=== PATIENT | female | born 1970 | race Caucasian/White ===

== ENCOUNTER 2016-11-02 22:38 | Inpatient (IN) | payer BC ==
--- NOTE | ~2016-11-02 | HP ---
History And Physical [place] [id number] [facility] [place]. [address] NAME: KATERINA DICKSON : 68 STATUS : ADM IN [facility]#: [id number] AGE: 46 ADM/REG DATE : 11/03/16 MR#: [id number] REPORT SERV DATE: 11/03/16 DICTATED BY: FABIENNE FRANZ DATE: 11/03/16 REPORT STATUS : Draft TRANSCRIBED BY: JAMMIE DATE: 11/03/16 DATE OF ADMISSION: 11/03/2016 CHIEF COMPLAINT: Unable to speak. HISTORY OF PRESENT ILLNESS: The patient is a 46-year-old white female with a past medical history of hypertension and transient ischemic attack, who presents to the emergency room tonight with complaints of aphasia. Please see Neurology's consult note for manager multimedia course of the patient's presentation with the administration of tPA. In brief summary, the patient was last seen normal at approximately 0630 on the night prior to admission when she developed the acute onset of difficulty speaking which was associated with left facial numbness as well as numbness in her left arm and leg associated with left facial droop as well as left-sided hemiparesis and difficulty speaking. The patient was brought to the emergency room by family where she continued to have these symptoms. In the emergency room, she was found to be hypertensive with systolic blood pressure in the 180s. There are no contraindications to tPA, and after discussion with Neurology, decision was made to administer tPA to the patient. She was also given hydralazine for hypertension, and following evaluation by Neurology, she is being admitted to the ICU overnight for observation given that she was given tPA. PAST MEDICAL HISTORY: 1. Hypertension. 2. History of TIA. HOME MEDICATIONS: See medication reconciliation form. ALLERGIES: NO KNOWN DRUG ALLERGIES. FAMILY HISTORY: Positive for CVA in her mother. SOCIAL HISTORY: Occasional alcohol use. No IV drug abuse. She does smoke marijuana and has no history of smoking. REVIEW OF SYSTEMS: A 10-point review of systems negative except as mentioned in the HPI. PHYSICAL EXAMINATION: VITAL SIGNS: Temperature 97.8, heart rate 62, respiratory rate 15, and blood pressure 160/97. GENERAL: A white female in no acute distress. HEENT: Pupils equal, round, and reactive to light. Extraocular movements intact. Oropharynx clear. Moist mucous membranes. NECK: Supple. Nontender. No lymphadenopathy. No thyromegaly. No jugular venous distention. LUNGS: Clear to auscultation bilaterally. CARDIOVASCULAR: Regular rate and rhythm. No murmurs, rubs, or gallops. History And Physical [address] [place]. [address] NAME: KATERINA DICKSON : 68 STATUS : ADM IN PAT#: [id number] AGE: 46 ADM/REG DATE : 11/03/16 MR#: [id number] REPORT SERV DATE: 11/03/16 DICTATED BY: FABIENNE FRANZ DATE: 11/03/16 REPORT STATUS : Draft TRANSCRIBED BY: JAMMIE DATE: 11/03/16 ABDOMEN: Soft, nontender, nondistended. Positive bowel sounds. No hepatosplenomegaly. EXTREMITIES: No cyanosis, clubbing, or edema. NEURO: Alert and oriented. Positive dysarthria. Left-sided hemiparesis with paresthesias. Left-sided facial droop present. PSYCH: Seems appropriate for what I can assess. LABS AND IMAGING: CBC within normal limits. Metabolic profile within normal limits. Head CT within normal limits. CT angio with no significant findings. ASSESSMENT AND PLAN: The patient is a 46-year-old female with a past medical history of hypertension, transient ischemic attack, who presented to the emergency room after developing acute onset of left-sided hemiparesis, paresthesia, and dysphagia, concern for a potential acute cerebrovascular accident versus hypertensive emergency or psychogenic component. I will defer to Neurology for further workup and treatment of potential cerebrovascular accident. The patient is status post tPA, so we will observe in the ICU overnight for bleeding. The patient will be getting MRI tomorrow as well as an echocardiogram. I appreciate Neurology's assistance in management of this patient. We will place the patient on aspirin 24 hours following tPA. We will treat her with p.r.n. labetalol and Cardene drip if needed for significant hypertension. The patient will be on SCDs for DVT prophylaxis and Protonix for gastrointestinal prophylaxis. The patient will remain in the ICU overnight. The patient is full code. YENNY/JAMMIE Fabienne Franz MD / [id number] CC: MD Jeaneth Khan M.D.
--- NOTE | ~2016-11-02 | DS ---
Discharge Summary [place] [address] [place]. [address] NAME: KATERINA DICKSON : 68 STATUS : DIS IN PAT#: [id number] AGE: 46 ADM/REG DATE : 11/03/16 MR#: [id number] REPORT SERV DATE: 11/07/16 DICTATED BY: IGNACIO DICKSON DATE: 11/07/16 REPORT STATUS : Draft TRANSCRIBED BY: MODL DATE: 11/07/16 ADMISSION DATE: 11/03/2016 DISCHARGE DATE: 11/07/2016 ADDENDUM: The patient has been normotensive here. Could consider outpatient beta-brando as best mortality reduction and antihypertensive for CAD equivalent. TIA. Needs to reduce Adderall given history of TIA. Also, the patient should consider possible outpatient MS workup. All questions were answered. It took well over 30 minutes to do. MIRELLA/JAMMIE Ignacio Dickson DO / [id number] CC: DO Jeaneth Goldman M.D.
--- NOTE | ~2016-11-02 | CN ---
Consultation Report [facility] [address] [place]. [address] NAME: KATERINA DICKSON : 68 STATUS : ADM IN PAT#: [id number] AGE: 46 ADM/REG DATE : 11/03/16 MR#: [id number] REPORT SERV DATE: 11/06/16 DICTATED BY: ANTONIO INMAN DATE: 11/06/16 REPORT STATUS : Draft TRANSCRIBED BY: MODL DATE: 11/06/16 PSYCHIATRIC CONSULTATION DATE OF CONSULTATION: 11/06/2016 I reviewed this patient's medical record. I discussed her status with her nurse. I discussed her status with Dr. Dickson, who is her current hospitalist. HISTORY OF PRESENT ILLNESS: She was admitted with left-sided weakness and inability to speak. She has been evaluated by Neurology with a diagnosis of complex migraine versus psychogenic etiology. I was consulted to address anxiety. PAST PSYCHIATRIC HISTORY: Her home medication list included Xanax 1 mg daily, Adderall 15 mg at mid day and 30 mg in the morning, hydrocodone/APAP 10/325 q.6 hours p.r.n. She told me she seldom takes the Xanax and the hydrocodone. She was started on Adderall about one year ago and she said she finds it helpful because she is able to function better at work. Topamax 25 mg at bedtime was started yesterday. She told me she has taken Topamax in the past to control migraine with good effect. She stopped taking it because her migraines were no longer troublesome. She reports that she experiences an occasional anxiety attack. When she was a child, she was prescribed Ritalin for a short period of time. She said she stopped taking it because her father thought she had slowed down too much. She reports that she always had difficulty in school. She received poor grades and she eventually quit school in the 10th grade. She also reports a lifelong tendency toward easily provoked crying and affective lability. She has experienced depressive episodes and also she has had episodes of heightened motivation with heightened impulsivity and energy. During the latter episodes, she has had periods of excessive spending. SOCIAL HISTORY: She is currently working for [employer], taking care of developmentally disabled adults. She has been once. She was about two years ago. She has two children, and two or more grandchildren. FAMILY HISTORY: Her sister and her niece were diagnosed with bipolar disorder. Her mother has suffered from depression and mood swings. MENTAL STATUS: She was cooperative and pleasant in attitude. However, she volunteered very little information, but she answered all questions appropriately. Her mood was mildly anxious. Her affect was labile, with brief episodes of tearfulness. Her thinking was logical. She had no delusions. She had no hallucinations. She was oriented to time, place, and person. She demonstrated good recent and remote memory. DIAGNOSIS: Probable bipolar 2 disorder. RECOMMENDATIONS: She should seek followup, outpatient, psychiatric care in the [facility] area. She thought she might apply to [facility] for this care. I will not start her on any new psychotropic medication. Consultation Report [address] [place]. [address] NAME: DICKSONMARIAHKATERINA MAGY : 68 STATUS : ADM IN [facility]#: [id number] AGE: 46 ADM/REG DATE : 11/03/16 MR#: [id number] REPORT SERV DATE: 11/06/16 DICTATED BY: ANTONIO INMAN DATE: 11/06/16 REPORT STATUS : Draft TRANSCRIBED BY: JAMMIE DATE: 11/06/16 MARGRET/JAMMIE Antonio Inman M.D. / [id number] CC: DO Jeaneth Goldman M.D.
--- NOTE | ~2016-11-02 | CN ---
Consultation Report [facility] [address] [place]. [address] NAME: KATERINA DICKSON : 68 STATUS : ADM IN PAT#: [id number] AGE: 46 ADM/REG DATE : 11/03/16 MR#: [id number] REPORT SERV DATE: 11/03/16 DICTATED BY: INNA GOMEZ DATE: 11/02/16 REPORT STATUS : Draft TRANSCRIBED BY: MODJohnny DATE: 11/02/16 [facility] INPATIENT NEUROLOGY CONSULTATION DATE OF CONSULTATION: 11/02/2016 HISTORY OF PRESENT ILLNESS: This patient was called as a stroke alert in the [facility] ER. I was called by the hospital at 213. I was told the last known normal time was at approximately 1900 hours. At that point, the patient developed left facial numbness followed by numbness in the left arm and left leg with left face droop, left arm and left leg weakness, and inability to speak. I spoke to Dr. Coates on the phone at this time, the patient was going to the CAT scanner, I was driving to the hospital, and by 2204, I had not received the CAT scan results, so I called the hospital again and spoke to Dr. Coates. She informed me that the CT head without contrast showed no hemorrhage and no signs of early subacute ischemia. Additionally, the patient's INR and platelets had come back. By this point, the patient was still quite symptomatic according to Dr. Coates, although she was making some mumbling speech. I was told there were no contraindications to TPA administration; therefore, we made the decision to infuse this at 2214. I was at the bedside by 2219. When I arrived, there ensued some indecision from the family about when the patient was last known to be normal. I heard times that were as remote as 1700 hours, which would put her outside the TPA window. Finally, I was able to speak to the family member who was literally with her at the last known normal time and he pegged it down to 1830. This did delay the infusion of TPA; however, I had this information at hand by 2229 and we were ready to proceed at that time. Additionally, when the patient came to the ER, her systolic blood pressure was 187 and she admitted that she had not been taking her blood pressure medications for several days. She had been administered hydralazine 10 mg at the time of my arrival and the blood pressure had come down to 161/100. She has a history of frequent migraines; however, she denied any migraine occurring today. She also denied any panic, anxiety, or other psychiatric symptoms associated with her current event. In fact, today is Mother's Day and she was in quite a good mood with her family around to spend time with her. Of note, her past medical history is significant reportedly for TIA diagnosed and treated at [facility] in 2016. PAST MEDICAL HISTORY: TIA and hypertension. MEDICATIONS: Adderall is the only medication she takes regularly. She takes hydrocodone occasionally. As noted, she has not been taking her blood pressure medication. She does not regularly take aspirin or any other anti-platelet or anticoagulation medications. ALLERGIES: NO KNOWN DRUG ALLERGIES. FAMILY HISTORY: The family history is notable for stroke at an early age. Her mother was at about the same age when she had a stroke. The patient and family are unaware of any provoking conditions such as a hypercoagulable disorder. Consultation Report [address] [place]. [address] NAME: KATERINA DICKSON : 68 STATUS : ADM IN [facility]#: [id number] AGE: 46 ADM/REG DATE : 11/03/16 MR#: [id number] REPORT SERV DATE: 11/03/16 DICTATED BY: INNA GOMEZ DATE: 11/02/16 REPORT STATUS : Draft TRANSCRIBED BY: JAMMIE DATE: 11/02/16 SOCIAL HISTORY: The patient endorses occasional alcoholic beverages, but denies cigarette smoking. She is exposed to secondhand smoke. She also smokes marijuana occasionally and states she has not done so in the last two weeks. REVIEW OF SYSTEMS: A complete review of systems was obtained and is negative other than stated in the history of present illness. PHYSICAL EXAMINATION: VITAL SIGNS: Blood pressure 161/100. GENERAL: Mild acute distress. HEAD, EARS, EYES, NOSE, AND THROAT: Normocephalic atraumatic. Moist mucous membranes. CARDIOVASCULAR: Regular rate and rhythm. No murmurs, gallops, or rubs. PULMONARY: Clear to auscultation bilaterally. ABDOMEN: Soft, nontender, nondistended. Active bowel sounds. SKIN: No rashes or lesions. JOINTS: No effusions or deformities. NEUROLOGIC EXAMINATION: The patient was oriented to self, hospital, and the fact that it was Mother's Day. Her speech was hypophonic and dysarthric. She did have a bit of stuttering over syllables when she read from the stroke cards; however, she could actually read all the words and she could identify all of the objects on the other stroke cards. She was aware of current events. She followed commands reasonably well. Cranial nerves showed pupils equally round and reactive to light and accommodation. Visual us were full to confrontation bilaterally. Funduscopic examination showed no disc margin abnormalities. Extraocular movements were intact. Facial sensation was reportedly reduced diffusely in the left side of the face; however, she did split the midline with the tuning fork placed over the frontal boss and toggled side to side. This is generally held to be a nonphysiologic finding. The upper facial strength was normal and symmetric. She appeared to have slight left nasolabial fold flattening and she did not activate the left lower part of the face when asked to smile or grimace. I initially thought this might be functional; however, I tested it repeatedly and the results remained the same. Auditory acuity was grossly intact bilaterally. The palate elevated symmetrically. Head turn and shoulder shrug were normal and symmetric. The tongue thrusts in the midline. On motor testing, she had some give-way proximally in the left arm; however, there may have been some mild diffuse weakness, perhaps 4+/5. This was variable and the effort was somewhat ratchety. There did not appear to be any true pronator drift on testing, although she held the left arm in a somewhat pronated position compared to her posture with the right arm. Effort was also ratchety in the left leg; however, she exhibited a greater degree of weakness there. Left hip flexor was 2/5. Knee extension and flexion 4/5. Dorsiflexion and plantar flexion 4+/5. On asking her to raise the left leg from the bed, I questioned whether a Bhat's response was positive with my hand placed under the right heel. On sensory testing, she endorsed reduction to light touch in the left arm and left leg. There was some degree of sensory extinction on simultaneous testing with the patient's eyes closed. Reflexes were 2+ in the arms and legs with negative Babinski. Coordination testing showed no clear dysmetria on finger-nose- Consultation Report [place] [id number] [place]. [address] NAME: KATERINA DICKSON : 68 STATUS : ADM IN PAT#: [id number] AGE: 46 ADM/REG DATE : 11/03/16 MR#: [id number] REPORT SERV DATE: 11/03/16 DICTATED BY: INNA GOMEZ DATE: 11/02/16 REPORT STATUS : Draft TRANSCRIBED BY: JAMMIE DATE: 11/02/16 finger. Gait testing was deferred. LABS AND IMAGING: CT of the head without contrast dated 11/02/2016 showed no acute intracranial abnormalities. There was no hemorrhage and no obvious signs of early subacute ischemia. I have personally visualized and interpreted this film. The radiology report called by telephone stated the same. CT of the head and neck dated 11/02/2016, was also obtained in the ER. I see no critical stenoses or occlusions in the proximal large vessel anterior circulation. I have personally visualized and interpreted this film. Salient labs include a platelet count of 291 and an INR of 1. ASSESSMENT: This patient's symptoms are worrisome for stroke to some extent. I would point out that in a right-handed patient, it would be incredibly unusual for a stroke to present with language dysfunction, but left-sided motor and sensory symptoms. This is a mismatch. In the overwhelming majority of right-handed patients, the language function is rooted in the left hemisphere. I suppose the patient could have multifocal acute events stemming from a proximal source. Hypertensive emergency is also in the differential as is psychogenesis; however, given her reported history of a TIA last year and her lack of home anti-platelet medication, I think the most prudent thing to do is to proceed as if this were an actual stroke. TPA was infused 7.7 mg over the first 60 seconds and then 69 mg over the ensuing 59 minutes. There does not appear to be an indication for endovascular intervention. PLAN: 1. TPA as per above. 2. Admit to the ICU to telemetry. 3. MRI brain without contrast, transthoracic echocardiogram with bubble, carotid ultrasound; these are all tests that will commence tomorrow. 4. TSH, A1c, and fasting lipids. 5. PT, OT, and ST. 6. Blood pressure goal of systolic less than 185 and diastolic less than 110. Currently, this has been controlled with hydralazine. If you will look at the stroke order set, the p.r.n. medication of choice is labetalol and I made sure the nurse was aware of this before I left the ER. If labetalol is insufficient, the next step is a Cardene drip. 7. The patient needs to be started on aspirin 81 mg daily, but this should not commence until 24 hours after the TPA infusion has been completed. 8. Until it has been 24 hours since the TPA infusion was completed, this patient should not receive anti-platelet medications, anticoagulation medications, needle sticks, or Marroquin placements. 9. The neuro-hospitalist will round on this patient tomorrow. LINH/JAMMIE Inna Fountain Consultation Report [address] [address] NAME: KATERINA DICKSON : 68 STATUS : ADM IN PAT#: [id number] AGE: 46 ADM/REG DATE : 11/03/16 MR#: [id number] REPORT SERV DATE: 11/03/16 DICTATED BY: INNA GOMEZ DATE: 11/02/16 REPORT STATUS : Draft TRANSCRIBED BY: MODJohnny DATE: 11/02/16 MD Gentry / [id number] CC: MD Jeaneth Khan M.D.
--- NOTE | ~2016-11-02 | DS ---
Discharge Summary [facility] [address] [place]. [address] NAME: KATERINA DICKSON : 68 STATUS : DIS IN PAT#: [id number] AGE: 46 ADM/REG DATE : 11/03/16 MR#: [id number] REPORT SERV DATE: 11/07/16 DICTATED BY: IGNACIO DICKSON DATE: 11/07/16 REPORT STATUS : Draft TRANSCRIBED BY: MODL DATE: 11/07/16 ADMISSION DATE: 11/03/2016 DISCHARGE DATE: 11/07/2016 HOSPITAL COURSE: A 46-year-old female with known history of hypertension, concern for TIA history, ADHD on Adderall 30 mg a day. The patient came in on 11/03/2016 unable to speak. She was last seen normal at 0630 hours the night prior. She had developed acute- onset difficulty speaking, left facial numbness, numbness of left arm and left leg, left facial droop, left-sided hemiparesis, difficulty speaking, hypertension of 180 systolic. There were no contraindications to tPA. After discussion with Neurology, decision was made to administer tPA. She went to the ICU thereafter. The patient had an MRI eventually after CT. Had a morphologically normal MRI of the brain with the exception of a small amount of gliotic change in the right and left centrum semiovale, nonspecific. Small areas of gliosis do not appear acute, cause no mass effect, not complicated by hemorrhage. Etiology of these areas can be quite large covering vascular, traumatic, or prior exposure to head trauma history possible. The patient denied any overt head trauma. The patient had an echocardiogram for full workup. EF 55%. Mild diastolic dysfunction. Normal RV chamber size and function. Posterior mitral valve prolapse without significant regurgitation or stenosis. No PFO. The patient was thought to have persistent left-sided hemiparesis despite normal MRI, CT, and even given tPA. The patient appeared to have giveaway weakness in left upper extremity and left lower extremity. She appeared to have 5/5 power initially, then had 4/5. Left hemiparesis with complex migraine versus psychogenic event. Trial Topamax, for which the patient states her headache with some blurry vision has improved, seen by Psychiatry, probable bipolar type 2 disorder. Stays alone. Above diagnosis mainly based on her history of lability, rapid mood shifting, heightened motivation, impulsivity, energy, episodes of excessive spending. Pursue Psychiatric outpatient care. Dr. Clifford signed off. The patient is amenable for discharge to go to facility. DISCHARGE MEDICATIONS: Will include Adderall 30 mg p.o. daily, would recommend to wean that down as an outpatient, spoken to the patient about this; aspirin 81 p.o. daily; Lipitor 80 p.o. daily; folic acid 1 mg p.o. daily; multivitamin one tablet p.o. daily; Lortab 5/325 p.o. b.i.d. p.r.n. pain; Xanax 0.25 p.o. b.i.d.; consider possible SSRI as an outpatient. CONSULTS: Psychiatry, ICU, and Neurology. DISCHARGE DIAGNOSES: See above, including chronic pain syndrome, generalized anxiety disorder, attention deficit hyperactivity disorder, hypertension, history of transient ischemic attack, bipolar type 2, left-sided hemiparesis MRI be negative, complicated migraine likely. All questions were answered. Took well over 30 minutes to do. MIRELLA/JAMMIE Discharge Summary [address] [address] NAME: YESSIKATERINA MAGY : 68 STATUS : DIS IN PAT#: [id number] AGE: 46 ADM/REG DATE : 11/03/16 MR#: [id number] REPORT SERV DATE: 11/07/16 DICTATED BY: IGNACIO DICKSON DATE: 11/07/16 REPORT STATUS : Draft TRANSCRIBED BY: MODL DATE: 11/07/16 Ignacio Dickson DO / [id number] CC: DO Jeaneth Goldman M.D.
[2016-11-02 21:43] LABS: BASOPHILS 0.2 %; BASOPHILS ABSOLUTE 0.02 10/3/uL (0.0-0.16); EOSINOPHILS 1.8 %; EOSINOPHILS ABSOLUTE 0.16 10/3/uL (0.0-0.53); HEMATOCRIT 40.9 % (36.0-48.0); HEMOGLOBIN 13.4 g/dL (12.0-16.0); IMMATURE GRANULOCYTES 0.1 %; IMMATURE GRANULOCYTES ABSOLUTE 0.01 10/3/uL (0.0-0.11); LYMPHOCYTES ABSOLUTE 3.89 10/3/uL (0.67-4.30); MEAN CORPUS HGB CONC 32.8 g/dL (32.0-36.0); MEAN CORPUSCULAR HEMOGLOB 29.3 pg (26.0-34.0); MEAN CORPUSCULAR VOLUME 89.3 fL (80-100); MEAN PLATELET VOLUME 9.3 fL (9.2-13.0); MONOCYTES 6.8 %; NEUTROPHILS 47.1 %; NEUTROPHILS ABSOLUTE 4.16 10/3/uL (2.02-8.40); PLATELET COUNT 291 10/3/uL (150-400); RBC DISTRIBUTION WIDTH 13.6 % (12.0-16.0); RED CELL COUNT 4.58 10/6/uL (4.0-5.6); WHITE BLOOD CELLS 8.8 10/3/uL (4.5-10.5)
[2016-11-02 21:46] LABS: MANUAL DIFF NO %
[2016-11-02 21:54] LABS: PARTIAL THROMBO TIME 32.9 SEC (22.5-37.2); PROTIME (NOT ORD) 12.8 SEC (12.0-14.5)
[2016-11-02 22:01] LABS: A/G RATIO 0.9 (0.7-1.9); ALBUMIN 3.5 G/DL (3.5-5.0); ALKALINE PHOSPHATASE 69 U/L (45-117); BUN (BLOOD UREA NITROGEN) 12 MG/DL (6-23); CALCIUM, SERUM 8.5 MG/DL (8.5-10.4); CHLORIDE, SERUM 109 MMOL/L (96-112); CO2 (CARBON DIOXIDE) 31 MMOL/L (24-34); CREATININE 0.94 MG/DL (0.55-1.02); GFR AFRICAN AMERICAN 84 ML/MIN (>=60); GFR NON AFRICAN AMERICAN 72 ML/MIN (>=60); GLOBULIN 3.7 G/DL (2.5-4.1); GLUCOSE, SERUM 90 MG/DL (60-99); SGPT(ALT) 18 U/L (5-65); SODIUM, SERUM 144 MMOL/L (135-148); TOTAL BILIRUBIN 0.2 MG/DL (0-1.2); TOTAL PROTEIN 7.2 G/DL (6.0-8.5); TROPONIN I <0.02 NG/ML (<0.05)
[2016-11-02 22:02] LABS: POTASSIUM, SERUM 3.8 MMOL/L (3.5-5.3); SGOT(AST) 14 U/L (5-40)
[2016-11-03 01:47] LABS: CHOL/HDL RATIO(NOT ORDER) 2.2 (0-5); CHOLESTEROL 125 MG/DL (< 200); HDL CHOLESTEROL 57 MG/DL (> 49); LDL CHOLESTEROL 57 MG/DL (< 130); NON-HDL CHOLESTEROL 68 MG/DL (< 160); TRIGLYCERIDE 58 MG/DL (< 150)
[2016-11-03 05:24] LABS: CPK (IF ELEVATED MB BANDS) 40 U/L (0-200); TROPONIN I <0.02 NG/ML (<0.05)
[2016-11-03 09:50] LABS: ASCORBIC ACID (UR NOT ORDER) NEG (NEG); BILIRUBIN, URINE NEGATIVE (NEG); KETONE, URINE NEGATIVE (NEG); LEUKOCYTE ESTERASE(NOT OR NEG (NEG); WBC (NOT ORDERED) (RFLEX) 1 (0-5)
[2016-11-03 10:35] LABS: CK-MB 0.6 NG/ML; CPK 40 U/L (0-200)
[2016-11-03] MEDS ORDERED: ACET500CAP PO (11:03)
[2016-11-03] MEDS ORDERED: ADDERALL30 MG PO (11:05)
[2016-11-03] MEDS ORDERED: ADDERALL15 MG PO (11:05)
[2016-11-03] MEDS ORDERED: NORCO1 TAB PO (11:06)
[2016-11-03] MEDS ORDERED: XANAX1 MG PO (11:06)
[2016-11-03 14:10] LABS: CPK (IF ELEVATED MB BANDS) 55 U/L (0-200); TROPONIN I <0.02 NG/ML (<0.05)
[2016-11-03 22:55] LABS: CPK (IF ELEVATED MB BANDS) 36 U/L (0-200); TROPONIN I <0.02 NG/ML (<0.05)
[2016-11-04 05:13] LABS: BASOPHILS 0.3 %; BASOPHILS ABSOLUTE 0.02 10/3/uL (0.0-0.16); EOSINOPHILS 2.7 %; EOSINOPHILS ABSOLUTE 0.18 10/3/uL (0.0-0.53); HEMOGLOBIN 13.5 g/dL (12.0-16.0); LYMPHOCYTES 45.3 %; LYMPHOCYTES ABSOLUTE 3.05 10/3/uL (0.67-4.30); MEAN CORPUS HGB CONC 32.9 g/dL (32.0-36.0); MEAN CORPUSCULAR HEMOGLOB 29.6 pg (26.0-34.0); MEAN CORPUSCULAR VOLUME 89.9 fL (80-100); MEAN PLATELET VOLUME 9.1 fL (9.2-13.0); MONOCYTES 4.9 %; MONOCYTES ABSOLUTE 0.33 10/3/uL (0.21-1.20); NEUTROPHILS 46.8 %; NEUTROPHILS ABSOLUTE 3.15 10/3/uL (2.02-8.40); PLATELET COUNT 270 10/3/uL (150-400); RBC DISTRIBUTION WIDTH 13.5 % (12.0-16.0); RED CELL COUNT 4.56 10/6/uL (4.0-5.6); WHITE BLOOD CELLS 6.7 10/3/uL (4.5-10.5)
[2016-11-04 05:15] LABS: MANUAL DIFF NO %
[2016-11-04 05:30] LABS: ALBUMIN 3.2 G/DL (3.5-5.0); BUN (BLOOD UREA NITROGEN) 10 MG/DL (6-23); CALCIUM, SERUM 8.5 MG/DL (8.5-10.4); CHLORIDE, SERUM 111 MMOL/L (96-112); CO2 (CARBON DIOXIDE) 27 MMOL/L (24-34); GFR AFRICAN AMERICAN 120 ML/MIN (>=60); GFR NON AFRICAN AMERICAN 103 ML/MIN (>=60); GLUCOSE, SERUM 89 MG/DL (60-99); PHOSPHORUS, SERUM 3.4 MG/DL (2.5-4.5); POTASSIUM, SERUM 3.5 MMOL/L (3.5-5.3); SODIUM, SERUM 144 MMOL/L (135-148)
[2016-11-04 20:29] LABS: CREATININE 0.9 MG/DL (0.55-1.02)
[2016-11-05 04:59] LABS: BASOPHILS 0.5 %; BASOPHILS ABSOLUTE 0.04 10/3/uL (0.0-0.16); EOSINOPHILS 2.7 %; EOSINOPHILS ABSOLUTE 0.21 10/3/uL (0.0-0.53); HEMOGLOBIN 13.4 g/dL (12.0-16.0); IMMATURE GRANULOCYTES 0.1 %; IMMATURE GRANULOCYTES ABSOLUTE 0.01 10/3/uL (0.0-0.11); LYMPHOCYTES 34.6 %; MEAN CORPUS HGB CONC 32.7 g/dL (32.0-36.0); MEAN CORPUSCULAR HEMOGLOB 29.1 pg (26.0-34.0); MEAN CORPUSCULAR VOLUME 88.9 fL (80-100); MEAN PLATELET VOLUME 9.4 fL (9.2-13.0); MONOCYTES 5.9 %; MONOCYTES ABSOLUTE 0.46 10/3/uL (0.21-1.20); NEUTROPHILS 56.2 %; NEUTROPHILS ABSOLUTE 4.38 10/3/uL (2.02-8.40); PLATELET COUNT 240 10/3/uL (150-400); RBC DISTRIBUTION WIDTH 13.3 % (12.0-16.0); RED CELL COUNT 4.61 10/6/uL (4.0-5.6); WHITE BLOOD CELLS 7.8 10/3/uL (4.5-10.5)
[2016-11-05 05:05] LABS: MANUAL DIFF NO %
[2016-11-05 05:06] LABS: ALBUMIN 3.1 G/DL (3.5-5.0); BUN (BLOOD UREA NITROGEN) 13 MG/DL (6-23); CALCIUM, SERUM 8.5 MG/DL (8.5-10.4); CHLORIDE, SERUM 110 MMOL/L (96-112); CO2 (CARBON DIOXIDE) 25 MMOL/L (24-34); CREATININE 0.74 MG/DL (0.55-1.02); GFR AFRICAN AMERICAN 112 ML/MIN (>=60); GFR NON AFRICAN AMERICAN 96 ML/MIN (>=60); GLUCOSE, SERUM 94 MG/DL (60-99); PHOSPHORUS, SERUM 3.5 MG/DL (2.5-4.5); SODIUM, SERUM 144 MMOL/L (135-148)
[2016-11-07] MEDS ORDERED: MULTIPLE VIT PO (11:34)
[2016-11-07] MEDS ORDERED: LIPITOR80 MG PO (11:35)
[2016-11-07] MEDS ORDERED: FOLIC PO (11:36)
[2016-11-07] MEDS ORDERED: HALF81 PO (11:36)
[2016-11-07] MEDS ORDERED: TOPAMAX25 PO (11:38)
[2017-01-02] MEDS ORDERED: X25 PO (01:16)
[2017-01-02] MEDS ORDERED: PRIN10 PO (01:16)
[2017-01-02] MEDS ORDERED: NORCO1 TAB PO (01:16)
[2017-01-02] MEDS ORDERED: LOP25 PO (01:17)
[2017-01-02] MEDS ORDERED: TOPAMAX25 PO (01:20)
[2017-01-02] MEDS ORDERED: ADDERALL5 MG PO (01:20)
[2017-01-02] MEDS ORDERED: FOLIC ACID400 MC1 PO (01:21)
[2017-01-02] MEDS ORDERED: ASAB PO (01:21)
[2017-01-02] MEDS ORDERED: LIPITOR80 MG PO (01:21)
[2017-01-02] MEDS ORDERED: TEARS AGAI1 OPH (01:21)
== END 2016-11-07 14:51 | disposition home health service (06) | DRG 103 ==
LOC: ER 22:38 → CCU 11-03 00:02 → 1SO 11-04 18:23
PROVIDERS: Emergency Medicine; Internal Medicine; Internal Medicine Critical Care Medicine
DX: G43.109 Migraine with aura, not intractable, without status migrainosus (principal); G81.94 Hemiplegia, unspecified affecting left nondominant side; R47.01 Aphasia; F31.81 Bipolar II disorder; I10 Essential (primary) hypertension; E87.6 Hypokalemia; M62.81 Muscle weakness (generalized); R13.10 Dysphagia, unspecified; F90.9 Attention-deficit hyperactivity disorder, unspecified type; G89.4 Chronic pain syndrome; F41.1 Generalized anxiety disorder; Z79.899 Other long term (current) drug therapy; Z91.14 Patient's other noncompliance with medication regimen; Z86.73 Personal history of transient ischemic attack (TIA), and cerebral infarction without residual deficits; Z82.3 Family history of stroke
CPT/HCPCS: 36415; 70450; 70496; 70498; 70553; 71010; 80053; 80061; 80069; 81001; 82550; 82553; 82962; 83036; 83735; 84484; 85025; 85610; 85730; 86850; 86900; 86901; 87641; 92523-GN; 93005; 93306; 96374; 97110-GP; 97116-GP; 97162-GP; 97165-GO; 99291; A9270-GY; A9577; J0360; J2997; Q9967